=== PATIENT | male | born 1945 | race American Indian/Alaskan Native ===

== ENCOUNTER 2019-04-29 17:14 | Emergency (ER) | payer MEDICARE ==
--- NOTE | 2019-04-29 18:17 | Emergency Department Report ---
Blank Doc - Documentation Documentation: 73-year-old male that presents with right lateral rib pain s/p fall. Denies any other injuries. Denies any neck pain. This initial assessment/diagnostic orders/clinical plan/treatment(s) is/are subject to change based on patient's health status, clinical progression and re-assessment by fellow clinical providers in the ED. Further treatment and workup at subsequent clinical providers discretion. Patient/guardians urged not to elope from the ED as their condition may be serious if not clinically assessed and managed. Initial orders include: 1- Patient sent to [facility] for further evaluation and treatment 2- xr rib
--- NOTE | 2019-04-29 19:09 | XRay Report ---
Chest with right RIBS 4 views. HISTORY: Rib pain. FINDINGS: Heart size is normal. Negative for edema, effusion or infiltrate. No bony injury. Signer Name: Edgar Edwards MD Signed: 04/29/2019 7:04 PM Workstation Name: [id number]
--- NOTE | 2019-04-29 20:00 | Emergency Department Report ---
ED General Adult HPI - General Chief complaint: Fall Stated complaint: FALL INJURY/CHEST PAIN/COUGH Time Seen by Provider: 04/29/19 18:14 Source: patient Mode of arrival: Wheelchair Limitations: No Limitations - History of Present Illness Initial comments: Patient is a 73-year-old gentleman who has a past medical history of CVA whose slipped and fell 2 days ago and hit the right side of his torso. Patient states he has some pain with deep breathing which is also causing the have a mild cough. The cough is nonproductive. Patient states the pain is 5 out of 10 in severity. Patient states pain hurts worse with breathing and with movement. - Related Data Previous Rx's Medication Instructions Recorded Last Taken Type Benzonatate [Tessalon Perles] 100 mg PO Q8HR #10 capsule 04/29/19 Unknown Rx Ibuprofen [Motrin 600 MG tab] 600 mg PO Q8H PRN #20 tablet 04/29/19 Unknown Rx traMADol [Ultram] 50 mg PO Q6HR PRN #12 tablet 04/29/19 Unknown Rx Allergies Allergy/AdvReac Type Severity Reaction Status Date / Time No Known Allergies Allergy Unverified 04/29/19 17:16 ED Review of Systems ROS: Stated complaint: FALL INJURY/CHEST PAIN/COUGH Other details as noted in HPI Constitutional: no symptoms reported ED Past Medical Hx - Past Medical History Previous Medical History?: Yes Hx Hypertension: Yes Hx CVA: Yes Hx Diabetes: Yes - Social History Smoking Status: Former Smoker Substance Use Type: None - Medications Home Medications: Home Medications Medication Instructions Recorded Confirmed Last Taken Type Benzonatate [Tessalon Perles] 100 mg PO Q8HR #10 capsule 04/29/19 Unknown Rx Ibuprofen [Motrin 600 MG tab] 600 mg PO Q8H PRN #20 tablet 04/29/19 Unknown Rx traMADol [Ultram] 50 mg PO Q6HR PRN #12 tablet 04/29/19 Unknown Rx ED Physical Exam - General Limitations: No Limitations General appearance: alert, in no apparent distress - Head Head exam: Present: atraumatic, normocephalic - Eye Eye exam: Present: normal appearance - ENT ENT exam: Present: mucous membranes moist - Neck Neck exam: Present: normal inspection - Respiratory Respiratory exam: Present: normal lung sounds bilaterally, chest wall tenderness (tenderness to the mid right rib laterally). Absent: respiratory distress, wheezes, rales, rhonchi - Cardiovascular Cardiovascular Exam: Present: regular rate, normal rhythm, normal heart sounds. Absent: systolic murmur, diastolic murmur, rubs, gallop - GI/Abdominal GI/Abdominal exam: Present: soft, normal bowel sounds. Absent: distended, tenderness, guarding, rebound - Rectal Rectal exam: Present: deferred - Extremities Exam Extremities exam: Present: normal inspection - Back Exam Back exam: Present: normal inspection - Neurological Exam Neurological exam: Present: alert, oriented X3 - Psychiatric Psychiatric exam: Present: normal affect, normal mood - Skin Skin exam: Present: warm, dry, intact, normal color. Absent: rash ED Course Vital Signs 04/29/19 17:18 Temperature 98.2 F Pulse Rate 85 Respiratory 18 Rate Blood Pressure 170/79 O2 Sat by Pulse 100 Oximetry ED Medical Decision Making - Radiology Data Radiology interpretation of the patient's chest x-ray with right rib detail was read as negative. Per minute interpretation there is a possible nondisplaced fracture of the distal seventh rib. Critical care attestation.: If time is entered above; I have spent that time in minutes in the direct care of this critically ill patient, excluding procedure time. ED Disposition Clinical Impression: Rib fracture Qualifiers: Encounter type: initial encounter Rib fracture type: single rib Fracture type: closed Laterality: right Qualified Code(s): S22.31XA - Fracture of one rib, right side, initial encounter for closed fracture Disposition: DC-01 TO HOME OR SELFCARE Is pt being admited?: No Does the pt Need Aspirin: No Condition: Stable Instructions: Rib Fracture (ED) Time of Disposition: 19:58
[2019-04-29 20:52] VITALS: BP 172/88
== END 2019-04-29 20:49 | disposition home or self-care (01) ==
LOC: ED 17:14
DX: S22.31XA Fracture of one rib, right side, initial encounter for closed fracture (principal); R05 Cough; R06.00 Dyspnea, unspecified; I10 Essential (primary) hypertension; E11.9 Type 2 diabetes mellitus without complications; Z87.891 Personal history of nicotine dependence; Z79.899 Other long term (current) drug therapy; W01.0XXA Fall on same level from slipping, tripping and stumbling without subsequent striking against object, initial encounter; Y93.89 Activity, other specified; Y92.89 Other specified places as the place of occurrence of the external cause; Y99.8 Other external cause status